=== PATIENT | male | born 1945 | race Caucasian/White ===

== ENCOUNTER 2019-02-17 17:48 | Emergency (ER) | payer BC ==
--- NOTE | 2019-02-17 18:13 | EDM.PDOC ---
ED HPI GENERAL MEDICAL PROBLEM - General Stated Complaint: UNKNOWN Time Seen by Provider: 02/17/19 18:03 Source of Information: Reports: Patient, Old Records - History of Present Illness INITIAL COMMENTS - FREE TEXT/NARRATIVE: patient presents to the ER with complaint of dizziness for the past day, states is intermittent. Patient states he has a history of vertigo for which he does the Jerrell maneuver and this helps. Patient states the dizziness has been increased, and also while he is laying down. Patient had an EKG done earlier today that showed some possible ischemia in the lateral leads. Patient denies any chest pains, shortness of breath, recent illness, fever, chills, N/V/D. last stress test was in 2011. Onset: Gradual Duration: Intermittent - Related Data Allergies Allergy/AdvReac Type Severity Reaction Status Date / Time atorvastatin calcium AdvReac Muscle Verified 02/17/19 18:35 [From Lipitor] Aches simvastatin [From Zocor] AdvReac Muscle Verified 02/17/19 18:35 Aches calcium containing cmpd AdvReac Fluid Uncoded 02/17/19 18:35 Retention Home Meds: Home Meds Aspirin [Ecotrin] 81 mg PO DAILY 10/29/14 [History] Lisinopril 20 mg PO DAILY 10/29/14 [History] Metoprolol Succinate [Toprol XL 50mg] 50 mg PO DAILY 10/29/14 [History] Past Medical History Other Gastrointestinal History: H-Pylori 2012 - Past Surgical History Other GI Surgeries/Procedures: H Pyloris tx 2011 Other Female Surgeries/Procedures: Radical prostatectomy ED ROS GENERAL - Review of Systems Review Of Systems: ROS reveals no pertinent complaints other than HPI. ED EXAM, GENERAL - Physical Exam Exam: See Below Exam Limited By: No Limitations General Appearance: Alert, WD/WN, No Apparent Distress Eye Exam: Bilateral Eye: EOMI, Normal Inspection Ears: Normal External Exam, Hearing Grossly Normal Nose: Normal Inspection Throat/Mouth: Normal Inspection, Normal Voice, No Airway Compromise Head: Atraumatic, Normocephalic Neck: Normal Inspection, Supple, Non-Tender, Full Range of Motion Respiratory/Chest: No Respiratory Distress, Lungs Clear, Normal Breath Sounds, No Accessory Muscle Use, Chest Non-Tender Cardiovascular: Normal Peripheral Pulses, No Edema, No Gallop, No JVD, No Murmur , No Rub, Irregularly Irregular (PAC's) Peripheral Pulses: 2+: Radial (L), Radial (R) GI/Abdominal: Normal Bowel Sounds, Soft, Non-Tender (Male) Exam: Deferred Rectal (Males) Exam: Deferred Back Exam: Normal Inspection, Full Range of Motion, NT Extremities: Normal Inspection, Normal Range of Motion, Non-Tender, Normal Capillary Refill, No Pedal Edema Neurological: Alert, Oriented, CN II-XII Intact, Normal Cognition, Normal Gait, Normal Reflexes, No Motor/Sensory Deficits Psychiatric: Normal Affect, Normal Mood Skin Exam: Warm, Dry, Intact, Normal Color, No Rash Lymphatic: No Adenopathy Course - Vital Signs Last Recorded V/S: Last Vital Signs Temp 97.5 F 02/17/19 17:52 Pulse 69 02/17/19 17:52 Resp 20 02/17/19 17:52 BP 177/96 H 02/17/19 17:52 Pulse Ox 99 02/17/19 17:52 - Orders/Labs/Meds Orders: Active Orders 24 hr Category Date Time Status EKG Documentation Completion [RC] STAT Care 02/17/19 17:50 Active Chest 1V Frontal [CR] Stat Exams 02/17/19 17:51 Taken Labs: Laboratory Tests 02/17/19 02/17/19 02/17/19 Range/Units 18:18 18:18 18:18 WBC 5.5 (5.0-10.0) 10^3/uL RBC 5.57 (4.6-6.2) 10^6/uL Hgb 16.8 (14.0-18.0) g/dL Hct 49.3 (40.0-54.0) % MCV 88.5 (80-100) fL MCH 30.2 (27.0-34.0) pg MCHC 34.1 (33.0-35.0) g/dL Plt Count 134 L (150-450) 10^3/uL Neut % (Auto) 48.1 (42.2-75.2) % Lymph % (Auto) 40.9 (20.5-50.1) % [place] % (Auto) 8.4 H (2-8) % Eos % (Auto) 2.2 (1.0-3.0) % Baso % (Auto) 0.4 (0.0-1.0) % PT 9.8 (9.0-12.0) SEC INR 1.0 (0.9-1.2) Sodium 138 (135-145) mmol/L Potassium 4.0 (3.6-5.0) mmol/L Chloride 101 (101-111) mmol/L Carbon Dioxide 31.0 (21.0-31.0) mmol/L Anion Gap 10.0 BUN 17 (7-18) mg/dL Creatinine 0.9 (0.6-1.3) mg/dL Est Cr Clr Drug Dosing 76.60 mL/min Estimated GFR (MDRD) > 60 BUN/Creatinine Ratio 18.88 Glucose 81 (74-105) mg/dL Calcium 9.3 (8.4-10.2) mg/dl Total Bilirubin 0.9 (0.2-1.0) mg/dL AST 30 (10-42) IU/L ALT 25 (10-60) IU/L Alkaline Phosphatase 71 (42-121) IU/L Troponin I < 0.02 (0.00-0.02) ng/ml Total Protein 7.5 (6.7-8.2) g/dl Albumin 4.5 (3.2-5.5) g/dl Globulin 3.0 Albumin/Globulin Ratio 1.50 - Radiology Interpretation Free Text/Narrative:: Chest xray: FINDINGS: Lungs: Unremarkable. No consolidation. Pleural space: Unremarkable. No pleural effusion. No pneumothorax. Heart/Mediastinum: Unremarkable. No cardiomegaly. Bones/joints: Unremarkable. IMPRESSION: No acute findings. Thank you for allowing us to participate in the care of your patient. Dictated and Authenticated by: Tuan Ambriz MD 02/17/2019 6:38 PM Central Time ([place] & [place]) See rad report - Re-Assessments/Exams Free Text/Narrative Re-Assessment/Exam: 02/17/19 19:00 Patient being discharged home with his , who is a physician. Patient instructed to return to the ER with any worsening of symptoms. Patient declines head CT at this time. Departure - Departure Time of Disposition: 18:56 Disposition: Home, Self-Care 01 Condition: Fair Clinical Impression: Dizziness Instructions: Vertigo, [id number], Dizziness, [id number] Forms: ED Department Discharge Additional Instructions: Follow up with your primary care facility Return to the ER with any further/worsening problems - My Orders Last 24 Hours: My Active Orders 02/17/19 17:50 EKG Documentation Completion [RC] STAT 02/17/19 17:51 Chest 1V Frontal [CR] Stat - Assessment/Plan Last 24 Hours: My Active Orders 02/17/19 17:50 EKG Documentation Completion [RC] STAT 02/17/19 17:51 Chest 1V Frontal [CR] Stat
[2019-02-17 18:22] VITALS: BP 177/96; PULSE 69
[2019-02-17 18:44] LABS: CHLORIDE,CL 101 mmol/L (101-111); SODIUM,NA 138 mmol/L (135-145)
== END 2019-02-17 19:03 | disposition home or self-care (01) ==
LOC: DL.ED 17:48
DX: R42 Dizziness and giddiness (principal); Z79.82 Long term (current) use of aspirin; Z88.8 Allergy status to other drugs, medicaments and biological substances
CPT/HCPCS: 36415; 71045; 80053; 84484; 85025; 85610; 93005; 99284-25

== ENCOUNTER 2020-04-26 10:50 | Emergency (ER) | payer MEDICARE, BC ==
[2020-04-26] MEDS ORDERED: Diphtheria,Pertussis(Acell),Tetanus Vaccine 0.5 ML Syringe IM ONE (10:54)
--- NOTE | 2020-04-26 11:00 | EDM.PDOC ---
ED HPI GENERAL MEDICAL PROBLEM - General Chief Complaint: Upper Extremity Injury/Pain Stated Complaint: RIGHT HAND INJURY Time Seen by Provider: 04/26/20 10:55 Source of Information: Reports: Patient, RN, RN Notes Reviewed History Limitations: Reports: No Limitations - History of Present Illness INITIAL COMMENTS - FREE TEXT/NARRATIVE: Pt presents to ER from home by POV with c/o laceration/puncture injury to palmar base of right hand sustained just [employer] when he slipped reaching for a pallet, and fell onto the nail. He believes the nail penetrated approx. 1.5cm to 2cm into his hand. The nail was intact, therefore retained foreign body is not suspected. He displays full ROM of the right hand, all five digits, and right wrist. No active bleeding. Last Tetanus vaccine >10yrs ago per pt. Onset: Today, Sudden Duration: Constant Location: Reports: Upper Extremity, Right Quality: Reports: Ache Severity: Moderate Improves with: Reports: None Worsens with: Reports: None Associated Symptoms: Reports: No Other Symptoms - Related Data Allergies Allergy/AdvReac Type Severity Reaction Status Date / Time atorvastatin calcium AdvReac Muscle Verified 04/26/20 11:00 [From Lipitor] Aches simvastatin [From Zocor] AdvReac Muscle Verified 04/26/20 11:00 Aches calcium containing cmpd AdvReac Fluid Uncoded 04/26/20 11:00 Retention Home Meds: Home Meds Aspirin [Ecotrin] 81 mg PO DAILY 10/29/14 [History] Lisinopril 20 mg PO DAILY 10/29/14 [History] Metoprolol Succinate [Toprol XL 50mg] 50 mg PO DAILY 10/29/14 [History] Rosuvastatin [Crestor] 10 mg PO DAILY 04/26/20 [History] Past Medical History HEENT History: Reports: None Cardiovascular History: Reports: Hypertension Respiratory History: Reports: None Gastrointestinal History: Reports: None Other Gastrointestinal History: H-Pylori 2013 Genitourinary History: Reports: None Musculoskeletal History: Reports: None Neurological History: Reports: None Psychiatric History: Reports: None Endocrine/Metabolic History: Reports: None Hematologic History: Reports: None Immunologic History: Reports: None Oncologic (Cancer) History: Reports: None Dermatologic History: Reports: None - Past Surgical History Other GI Surgeries/Procedures: H Pyloris tx 2011 Other Female Surgeries/Procedures: Radical prostatectomy Social & Family History - Family History Family Medical History: No Pertinent Family History - Living Situation & Occupation Living situation: Reports: Occupation: Employed Review of Systems - Review of Systems Review Of Systems: Comprehensive ROS is negative, except as noted in HPI. ED EXAM, GENERAL - Physical Exam Exam: See Below Exam Limited By: No Limitations General Appearance: Alert, WD/WN, No Apparent Distress Throat/Mouth: Normal Voice Respiratory/Chest: No Respiratory Distress Cardiovascular: Normal Peripheral Pulses Extremities: Normal Range of Motion, Normal Capillary Refill, Other (0.5cm diameter semicircle laceration from a nail head that penetrated the palmar base of the right hand to depth of subcutaneous tissue, no FB, no active bleeding.) Neurological: Alert, Oriented, No Motor/Sensory Deficits Psychiatric: Normal Mood Skin Exam: Warm, Dry ED TRAUMA EXTREMITY PROCEDURES - Laceration/Wound Repair Right Ventral Hand Lac/Wound Length In cm: 0.5 Appearance: Subcutaneous, Irregular, Clean Distal NVT: Neuro & Vascular Intact, No Tendon Injury Anesthetic Type: Local Local Anesthesia - Lidocaine (Xylocaine): 1% Plain Local Anesthetic Volume: 3cc Skin Prep: Chlorhexidine (Hibiciens), Saline Saline Irrigation (cc's): 1,000 Exploration/Debridement/Repair: Wound Explored, In a Bloodless Field, Explored to Base, Minimal Debridement, Minimally Undermined Closed With: Sutures Suture Size: 4-0 # of Sutures: 3 Suture Type: Nylon, Interrupted Drain Placement: No Sterile Dressing Applied: Nurse Tetanus Status Addressed: Yes Complications: No Course - Vital Signs Last Recorded V/S: Last Vital Signs Temp 97.1 F 04/26/20 10:54 Pulse 75 04/26/20 10:54 Resp 18 04/26/20 10:54 BP 152/111 H 04/26/20 10:54 Pulse Ox 99 04/26/20 10:54 - Orders/Labs/Meds Orders: Active Orders 24 hr Category Date Time Status Vaccines to be Administered [RC] PER UNIT ROUTINE Care 04/26/20 10:54 Active Meds: Medications Discontinued Medications Generic Name Dose Route Start Last Admin Trade Name Freq PRN Reason Stop Dose Admin Diphtheria/Tetanus/Acell Pertussis 0.5 ml 04/26/20 10:54 04/26/20 11:03 Boostrix IM 04/26/20 10:55 0.5 ml .ONCE ONE Administration Departure - Departure Time of Disposition: 11:23 Disposition: Home, Self-Care 01 Condition: Good Clinical Impression: Laceration of right hand Qualifiers: Encounter type: initial encounter Foreign body presence: without foreign body Qualified Code(s): S61.411A - Laceration without foreign body of right hand, initial encounter Puncture wound of right hand without complication Qualifiers: Encounter type: initial encounter Qualified Code(s): S61.431A - Puncture wound without foreign body of right hand, initial encounter - Discharge Information *PRESCRIPTION DRUG MONITORING PROGRAM REVIEWED*: Not Applicable *COPY OF PRESCRIPTION DRUG MONITORING REPORT IN PATIENT CHASE: Not Applicable Instructions: Laceration Care, Adult Forms: ED Department Discharge Additional Instructions: Suture removal in 7 to 10 days. Sepsis Event Note (ED) - Focused Exam Vital Signs: Vital Signs Temp Pulse Resp BP BP Pulse Ox 04/26/20 10:54 97.1 F 75 18 152/111 H 181/90 H 99 - My Orders Last 24 Hours: My Active Orders 04/26/20 10:54 Vaccines to be Administered [RC] PER UNIT ROUTINE - Assessment/Plan Last 24 Hours: My Active Orders 04/26/20 10:54 Vaccines to be Administered [RC] PER UNIT ROUTINE
[2020-04-26 11:24] VITALS: BP 152/111; PULSE 75
== END 2020-04-26 11:27 | disposition home or self-care (01) ==
LOC: DL.ED 10:50
DX: S61.411A Laceration without foreign body of right hand, initial encounter (principal); Z88.8 Allergy status to other drugs, medicaments and biological substances; I10 Essential (primary) hypertension; Z79.82 Long term (current) use of aspirin; Z79.899 Other long term (current) drug therapy; Z23 Encounter for immunization; W45.0XXA Nail entering through skin, initial encounter
CPT/HCPCS: 12001; 90471; 90715; 99282; 99283-25

== ENCOUNTER 2022-09-07 05:57 | Day surgery (SDC) | payer MEDICARE, BC ==
[2022-09-07] MEDS ORDERED: Dextrose 5%-0.45% NaCl 1,000 ML IV SCH (06:30)
[2022-09-07] MEDS ORDERED: Midazolam 1 MG/ML 2 ML SDV ONE (06:33)
[2022-09-07] MEDS ORDERED: fentaNYL 100 MCG/2 ML SDV ONE (06:34)
[2022-09-07] MEDS ORDERED: fentaNYL 100 MCG/2 ML SDV IV ONE ×2 (06:54→06:55)
[2022-09-07] MEDS ORDERED: Midazolam 1 MG/ML 2 ML SDV IV ONE ×6 (06:56→07:09)
[2022-09-07 09:27] VITALS: BP 120/67; PULSE 56
== END 2022-09-07 09:25 | disposition home or self-care (01) ==
LOC: DL.ENDO 05:57
PROVIDERS: ATTEND Internal Medicine Gastroenterology
DX: K64.8 Other hemorrhoids (principal); K62.5 Hemorrhage of anus and rectum; I10 Essential (primary) hypertension; R73.9 Hyperglycemia, unspecified; D69.6 Thrombocytopenia, unspecified; E66.09 Other obesity due to excess calories; G47.33 Obstructive sleep apnea (adult) (pediatric); I25.10 Atherosclerotic heart disease of native coronary artery without angina pectoris; E78.5 Hyperlipidemia, unspecified; Z88.8 Allergy status to other drugs, medicaments and biological substances; Z68.30 Body mass index [BMI] 30.0-30.9, adult
CPT/HCPCS: 45378; J2250; J3010; J7042